=== PATIENT | male | born 1990 | race Caucasian/White ===

== ENCOUNTER 2023-07-22 18:26 | Emergency (ER) | payer OTHER, SELFPAY ==
[2023-07-22 18:29] VITALS: BP 113/86; PULSE 98; RESP 18; TEMP 36.2; O2SAT 100
[2023-07-22 18:59] LABS: Appearance Urine Turbid (Clear); Bacteria Urine None Seen /hpf; Bilirubin Urine Negative (Negative); Blood Urine 2+ (Negative); Color Urine Yellow (Yellow); Glucose Urine UA Negative (Negative); Ketones Urine Negative (Negative); Leukocyte Esterase Ur 1+ LEU/UL (Negative); Nitrate Urine Negative (Negative); Non Pathogenic Casts 0-2; Protein Urine Negative (Negative); RBC Urine 21-50 /hpf (0-2); Specific Grav Ur 1.023 (1.001-1.035); Squamous Epithelial Cell Urine None seen /hpf (Few); Urobilinogen Urine 0.2 mg/dL (<2.0); WBC Urine 51-100 /hpf
--- NOTE | 2023-07-22 19:03 | ED.GENADULT ---
HPI - General Adult General Chief complaint: Urogenital-Male Stated complaint: UTI Time Seen by Provider: 07/22/23 18:30 Source: patient Mode of arrival: ambulatory Limitations: no limitations History of Present Illness HPI narrative: This is a 33-year-old male with no pertinent PMH who presents to the ED with chief complaint of possible STD. Reports he is concerned as he has had penile discharge and painful urination. Reports it is a yellowish clear discharge. Reports he did have unprotected sex. Reports he was unable to get in contact with his partner. Denies any history of STDs. Denies scrotal pain or swelling. Denies fevers, chills, nausea, vomiting, abdominal pain. Related Data Allergies Allergy/AdvReac Type Severity Reaction Status Date / Time No Known Allergies Allergy Verified 07/22/23 18:31 Review of Systems Review of Systems: All systems as dictated in HPI Exam Narrative: GENERAL: Well-appearing, well-nourished, and in no acute distress. HEAD: Normocephalic, atraumatic. EYES: PERRLA and EOMI. ENT: Nares clear, no rhinorrhea or epistaxis. Mucous membranes moist. Oropharynx without tonsillar hypertrophy exudate or other lesions. NECK: Supple. No adenopathy or masses. CHEST: No respiratory distress. Clear to auscultation. No wheezes rales or rhonchi HEART: Regular rate and rhythm. No murmur heard. Normal peripheral pulses. ABDOMEN: Soft, nontender, nondistended, normal active bowel sounds. MSK: Normal range of motion. No edema. SKIN: Warm, dry, no rash. NEURO: Alert and oriented x3. No focal deficits. PSYCH: Normal mood and affect. exam deferred Course Vital Signs Vital signs: Vital Signs Temperature 97.2 F L 07/22/23 18:29 Pulse Rate 98 07/22/23 18:29 Respiratory Rate 18 07/22/23 18:29 Blood Pressure 113/86 07/22/23 18:29 Pulse Oximetry 100 07/22/23 18:29 Oxygen Delivery Room Air 07/22/23 18:29 Temperature 97.2 F L 07/22/23 18:29 Pulse Rate 98 07/22/23 18:29 Respiratory Rate 18 07/22/23 18:29 Blood Pressure 113/86 07/22/23 18:29 Pulse Oximetry 100 07/22/23 18:29 Oxygen Delivery Room Air 07/22/23 18:29 Medical Decision Making MDM Narrative Medical decision making narrative: Medical screening exam performed by advanced practice provider in triage. Vital Signs Vital Signs: Vital Signs Temperature 97.2 F L 07/22/23 18:29 Pulse Rate 98 07/22/23 18:29 Respiratory Rate 18 07/22/23 18:29 Blood Pressure 113/86 07/22/23 18:29 Pulse Oximetry 100 07/22/23 18:29 Oxygen Delivery Room Air 07/22/23 18:29 Temperature 97.2 F L 07/22/23 18:29 Pulse Rate 98 07/22/23 18:29 Respiratory Rate 18 07/22/23 18:29 Blood Pressure 113/86 07/22/23 18:29 Pulse Oximetry 100 07/22/23 18:29 Oxygen Delivery Room Air 07/22/23 18:29 Lab Data Labs: Lab Results 07/22/23 Range/Units 18:47 Urine Color Pending Urine Appearance Pending Urine pH Pending Ur Specific [place] Pending Urine Protein Pending Urine Glucose (UA) Pending Urine Ketones Pending Ur Blood (Man) Pending Urine Nitrate Pending Urine Bilirubin Pending Urine Urobilinogen Pending Leukocyte Esterase Rfl Pending Discharge Plan Discharge Follow-up/Referrals: UNKNOWN,DOCTOR [Primary Care Provider] -
[2023-07-22 19:34] LABS: Add Urine Microscopic? YES
[2023-07-22 21:35] LABS: Chlamydia trachomatis DETECTED (NOT DETECTE); Neisseria gonorrhoeae PCR NOT DETECTED (NOT DETECTE)
[2023-07-22 21:46] LABS: Trichomonas Vag PCR NOT DETECTED (NOT DETECTE)
--- NOTE | 2023-07-22 22:08 | ED.MALEGU ---
HPI - Male Genitourinary General Chief complaint: Urogenital-Male Stated complaint: UTI Time Seen by Provider: 07/22/23 18:30 Source: patient Mode of arrival: ambulatory Limitations: no limitations History of Present Illness HPI Narrative: 33-year-old male reports for evaluation for STD testing. Patient states he had unprotected intercourse 8 days ago and since then has developed a pale yellow discharge and a discomfort to his urethra. He states he reached out to his sexual partner and she blocked him. He denies abdominal pain, vomiting, scrotal edema, testicular pain or edema, penile sores or lesions, back pain, dysuria or hematuria. Related Data Allergies Allergy/AdvReac Type Severity Reaction Status Date / Time No Known Allergies Allergy Verified 07/22/23 18:31 Review of Systems Review of Systems: CONSTITUTIONAL: Denies fever, chills EYES: Denies visual changes, redness, or discharge. ENT: Denies rhinorrhea, congestion, sore throat, or otalgia. CARDIOVASCULAR: Denies chest pain, palpitations, or edema. RESPIRATORY: Denies cough or dyspnea. GASTROINTESTINAL: Denies abdominal pain, nausea, vomiting, or diarrhea. GENITOURINARY: See HPI SKIN: Denies rash or itching. MUSCULOSKELETAL: Denies back pain, joint pain, or myalgia. NEUROLOGIC: Denies headache, numbness, dizziness, or weakness. PSYCHIATRIC: Denies anxiety or depression. Exam Narrative: GENERAL: Well-appearing, in no acute distress. HEAD: Normocephalic NECK: Supple. CHEST: No respiratory distress. Clear to auscultation, no adventitious breath sounds. HEART: Regular rate and rhythm. No murmur heard. Normal peripheral pulses. ABDOMEN: Soft, nontender, normal active bowel sounds. No CVA tenderness. EXTREMITIES: Normal range of motion. No edema. SKIN: Warm, dry, no rash. NEURO: No focal deficits. Alert and oriented x3. PSYCH: Normal mood and affect. Course Vital Signs Vital signs: Vital Signs Temperature 97.2 F L 07/22/23 18:29 Pulse Rate 98 07/22/23 18:29 Respiratory Rate 18 07/22/23 18:29 Blood Pressure 113/86 07/22/23 18:29 Pulse Oximetry 100 07/22/23 18:29 Oxygen Delivery Room Air 07/22/23 18:29 Temperature 97.2 F L 07/22/23 18:29 Pulse Rate 98 07/22/23 18:29 Respiratory Rate 18 07/22/23 18:29 Blood Pressure 113/86 07/22/23 18:29 Pulse Oximetry 100 07/22/23 18:29 Oxygen Delivery Room Air 07/22/23 18:29 MDM - Male Genitourinary MDM Narrative Medical decision making narrative: 33-year-old male reports for evaluation for penile discharge and urethral pain after an unprotected intercourse 8 days ago. See HPI for further history. Vital stable. Patient is well-appearing on exam. Abdomen is soft and nontender. Patient tested positive for chlamydia. He was negative for gonorrhea and trichomonas. Urinalysis significant for 51-100 WBCs, leuk esterase and hematuria, likely secondary to chlamydial infection. Labs discussed with the patient. First dose of doxycycline and IM Rocephin provided. Doxycycline sent to pharmacy. Advised the patient to not have intercourse until he has completed his antibiotics and to use condoms in the future. Discussed that we do not test for HIV, syphilis or hepatitis in the ED and that he should follow-up with PCP if he desires testing. Strict ED return precautions discussed. He is agreeable to plan verbalized understanding. Discharged in stable condition. Medical Records Attestation: I reviewed the patient's medical records. Lab Data Attestation: I reviewed the patient's lab results. Labs: Lab Results 07/22/23 Range/Units 18:47 Urine Color Yellow (Yellow) Urine Appearance Turbid H (Clear) Urine pH 7.0 (5.0-9.0) Ur Specific [place] 1.023 (1.001-1.035) Urine Protein Negative (Negative) mg/dL Urine Glucose (UA) Negative (Negative) mg/dL Urine Ketones Negative (Negative) mg/dL Ur Blood (Man) 2+ H (Negative) Urine Nitrate Negative
[2023-07-22] MEDS: CEFTRIAXONE 0.5 GM IM (22:27)
[2023-07-22] MEDS: LIDOCAINE HCL 1% IM (22:27)
[2023-07-22] MEDS: DOXYCYCLINE HYCLATE 100 MG TABLET PO (22:28)
== END 2023-07-22 22:15 | disposition home or self-care (01) ==
LOC: ANHED 22:24
PROVIDERS: Physician Assistant; Emergency Provider Physician Assistant
DX: A74.9 Chlamydial infection, unspecified (principal)
CPT/HCPCS: 81001; 87086; 87491; 87591; 87661; 96372; 99283; A9270; J0696